=== PATIENT | male | born 1930 | race Hispanic/Latino ===

== ENCOUNTER 2017-06-16 10:15 | Day surgery (SDC) | payer MEDICARE ==
[~2017-06-16 10:15] MED LIST: ANCEF/STERILE WATER 2 GM/20 ML 2 GM/20 ML SYRINGE IV NR; NACL 0.9% 1000 ML 1,000 ML IV SCH
[2017-06-16 11:26] LABS: Basophils # (Auto) 0.1 K/mm3 (0.0-0.1); Basophils % (Auto) 0.9 % (0.0-1.8); Eosinophils # (Auto) 0.4 K/mm3 (0.0-0.4); Eosinophils % (Auto) 6.2 % (0.0-4.3); Hematocrit 37.8 % (35.5-45.6); Lymphocytes % (Auto) 16.1 % (13.4-35.0); Mean Corpuscular HGB Conc 35 % (32-34); Mean Corpuscular Hemoglobin 33 pg (28-32); Mean Corpuscular Volume 94 fl (84-94); Monocytes # (Auto) 0.8 K/mm3 (0.0-0.8); Monocytes % (Auto) 13.2 % (0.0-7.3); Platelet Count 358 K/mm3 (140-440); Red Blood Count 4.01 M/mm3 (3.65-5.03); Red Cell Distribution Width 12.9 % (13.2-15.2)
[2017-06-16 11:38] LABS: BUN/Creatinine Ratio 23; Blood Urea Nitrogen 16 mg/dL (9-20); Calcium 9.2 mg/dL (8.4-10.2); Hemolysis Index 14
[2017-06-16] MEDS ORDERED: VERSED ONE (11:56)
[2017-06-16] MEDS ORDERED: VERSED IV ONE (11:58)
[2017-06-16] MEDS ORDERED: SUBLIMAZE ONE (12:09)
[2017-06-16] MEDS ORDERED: DIPRIVAN 10 MG/ML IV ONE ×3 (12:10)
[2017-06-16] MEDS ORDERED: ADRENALIN ONE (12:11)
[2017-06-16] MEDS ORDERED: ePHEDrine SULFATE ONE (12:12)
[2017-06-16] MEDS ORDERED: KETALAR ONE (13:05)
--- NOTE | 2017-06-16 13:10 | Anesthesia Consultation ---
Anesthesia Consult and Med Hx Date of service: 06/16/17 - Airway Anesthetic Teeth Evaluation: Poor ROM Head & Neck: Adequate Mental/Hyoid Distance: Adequate Mallampati Class: Class III Intubation Access Assessment: Possibly Difficult - Pulmonary Exam CTA: Yes - Cardiac Exam Cardiac Exam: RRR - Pre-Operative Health Status ASA Pre-Surgery Classification: ASA3 Proposed Anesthetic Plan: MAC - Pulmonary Hx Smoking: No (as per the medical record) - Cardiovascular System Hx Cardia Arrhythmia: Yes (RBBB first degree AVB) Hx Peripheral Vascular Disease: Yes (DVT) - Central Nervous System Hx Psychiatric Problems: Yes (Alzheimer dementia) - Endocrine Hx Hypothyroidism: Yes - Other Systems Hx Cancer: Yes - Additional Comments Anesthesia Medical History Comments: Very poor historian. Reviewed records on the computer. Surgical clearance on file
--- NOTE | 2017-06-16 13:20 | Anesthesia Day of Surgery ---
Anesthesia Day of Surgery - Day of Surgery Patient Examined: Yes Patient H&P Reviewed: Yes Patient is NPO: Yes Beta Blockers: Yes Cardiac Clearance: Yes Pulmonary Clearance: Yes
[2017-06-16] MEDS ORDERED: XYLOCAINE 2% INFILTRATI ONE (13:32)
[2017-06-16] MEDS ORDERED: HEPARIN 10,000 UNITS/10 ML ONE (13:32)
[2017-06-16] MEDS ORDERED: HEPARIN/NS 5000 UNIT/500ML(CATH LAB) 500 ML IR ONE (13:32)
[2017-06-16] MEDS ORDERED: ANCEF/STERILE WATER 2 GM/20 ML 0 GM/0 ML SYRINGE IV ONE (13:32)
--- NOTE | 2017-06-16 14:02 | Post Anesthesia Evaluation ---
- Post Anesthesia Evaluation Patient Participated: Yes Airway Patent: Yes Stable Respiratory Function: Yes Nausea/Vomiting: No Temp > 96.8F: Yes Pain Manageable: Yes Adequeate Hydration: Yes Anesthesia Complications: No
--- NOTE | 2017-06-16 14:26 | Operative Report ---
Operative Report Operative Report: Procedure: 1. Placement of an IVC filter 2. Inferior vena cavography Date of Procedure: 06/16/2017 History/Indication: 87-year-old male with severe dementia recently found to have a left iliofemoral DVT. Due to a fall risk, he is not a candidate for anticoagulation. Physician: Christal Cunningham MD Technique/Procedural Details: The patient was placed in the supine position and prepped and draped in the usual sterile fashion. A timeout was performed. Local anesthetic was administered. Under continuous ultrasound guidance, the right common femoral vein was accessed with a 21-gauge needle. This was exchanged via a micropuncture technique for a 5 [place] vascular sheath. Through the sheath, a pigtail catheter was inserted into the inferior vena cava. Venography of the IVC was performed. An appropriate level was chosen based on the ostium of the renal veins. A [place] inferior vena cava filter was deployed in the standard fashion. Final images were acquired. All sheaths and catheters were removed. Discussion: There is successful placement of an IVC filter at the L2/L3 level. 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 Specimen: None EBL: <5 cc
[2017-06-16 14:52] VITALS: BP 140/86
== END 2017-06-16 15:20 | disposition home or self-care (01) ==
LOC: CATHLABREC 10:15
PROVIDERS: ATTEND Radiology Diagnostic Radiology
DX: I82.422 Acute embolism and thrombosis of left iliac vein (principal); I73.9 Peripheral vascular disease, unspecified; G30.9 Alzheimer's disease, unspecified; F02.80 Dementia in other diseases classified elsewhere, unspecified severity, without behavioral disturbance, psychotic disturbance, mood disturbance, and anxiety; E03.9 Hypothyroidism, unspecified; Z85.9 Personal history of malignant neoplasm, unspecified; Z88.8 Allergy status to other drugs, medicaments and biological substances
CPT/HCPCS: 36415; 37191; 80048; 85025; C1880; J1644; J2250; J2704; J3010; J7030; J0171; J0690; Q9967